=== PATIENT | male | born 2005 | race Caucasian/White ===

== ENCOUNTER 2024-04-11 04:00 | Emergency (ER) | payer MEDICAID, OTHER ==
[~2024-04-11] VITALS: Ht 193 cm; Wt 78.4 kg
[2024-04-11 04:05] VITALS: BP 130/86; PULSE 69; RESP 16; TEMP 97.5; O2SAT 100
[2024-04-11] MEDS: FAMOTIDINE 20 MG TAB PO ONE (04:39)
[2024-04-11] MEDS: ONDANSETRON HCL 4 MG/2 ML VIAL IM ONE (04:40)
[2024-04-11] MEDS ORDERED: FAMO20TA10 PO (04:50)
[2024-04-11] MEDS ORDERED: ZOFR4T PO (04:50)
== END 2024-04-11 04:56 | disposition home or self-care (01) ==
LOC: ER 04:00
DX: R11.2 Nausea with vomiting, unspecified (principal)
CPT/HCPCS: 96372; 99283; J2405